=== PATIENT | male | born 1995 | race Caucasian/White ===

== ENCOUNTER 2018-12-14 23:21 | Emergency (ER) | payer OTHER ==
[~2018-12-14] VITALS: Ht 180.3 cm; Wt 108.0 kg
[2018-12-15 00:36] VITALS: BP 138/76
== END 2018-12-15 00:40 | disposition home or self-care (01) | DRG 103 ==
LOC: ED 23:21
DX: R51 Headache (principal); F17.210 Nicotine dependence, cigarettes, uncomplicated; V49.9XXA Car occupant (driver) (passenger) injured in unspecified traffic accident, initial encounter